=== PATIENT | male | born 1995 | race Caucasian/White ===

== ENCOUNTER → 2017-12-31 09:44 | Outpatient (CLI) | payer OTHER, SELFPAY ==
--- NOTE | 2017-12-31 | DI.RAD.S_ITS ---
PROCEDURE: FL SHOULDER INJECTION MR/CT RT INDICATIONS: PAIN IN RIGHT SHOULDER. TECHNIQUE: The indications, alternatives, benefits, risks, and complications of the procedure were explained to the patient. Written informed consent was obtained and placed in the chart. The shoulder was examined fluoroscopically and a site for needle placement chosen for entry into the glenohumeral joint from an anterior approach. The skin was prepped and draped in a sterile fashion, and 1% lidocaine infiltrated from skin down to joint capsule. A spinal needle was inserted into the glenohumeral joint, and a small amount of iodinated contrast media injected to confirm intra-articular placement of the needle tip. This was followed by approximately 10 mL dilute solution of a gadolinium containing MR contrast agent. The needle was removed and a dressing was applied. The patient was given postprocedural instructions and sent to the MR suite for MR imaging. FINDINGS: A single fluoroscopic spot image demonstrates intra-articular location of injected iodinated contrast. IMPRESSION: Successful fluoroscopically guided administration of dilute Gadolinium solution into the right shoulder joint for MR arthrogram. Dictated by: Vito Neumann M.D. on 12/31/2017 at 11:20 Approved by: Vito Neumann M.D. on 12/31/2017 at 11:21
--- NOTE | 2017-12-31 | DI.MRI.S_ITS ---
PROCEDURE: MR SHOULDER RT W CON INDICATIONS: PAIN IN RIGHT SHOULDER TECHNIQUE: After the administration of 12 mL of dilute intra-articular Gadolinium contrast, oblique coronal T1 and T2 spin echo with fat saturation, oblique sagittal T1 spin echo with and without fat saturation, oblique sagittal T2 fast spin echo with fat saturation, axial T1 spin echo with fat saturation through the shoulder. COMPARISON: None. FINDINGS: Image quality: Excellent. Rotator cuff: The supraspinatus tendon is slightly thickened with increased internal signal compatible with moderate tendinosis. There is a low-grade, partial, interstitial tear of the supraspinatus tendon at the humeral attachment (series 5, image 12). The infraspinatus tendon is slightly thickened with mildly increased internal signal compatible with mild tendinosis. The infraspinatus, and subscapularis tendons appear intact throughout. No rotator cuff muscle atrophy on sagittal images. Bones and bursae: No bone marrow contusions or fractures. Mild acromioclavicular joint osteoarthritic degeneration. The acromion demonstrates conventional anatomy, without an os acromiale. Fluid noted in the subacromial/subdeltoid bursa. Capsule and soft tissues: The labrum and glenohumeral ligaments appear intact. The long head of the biceps tendon demonstrates normal location and morphology. The rotator interval appears normal, without fibrosis. The coracohumeral ligament is of normal thickness. No intra-articular bodies. IMPRESSION: 1. Low-grade, partial, interstitial tear of the supraspinatus tendon at the humeral attachment. 2. Moderate supraspinatus tendinopathy. Mild infraspinatus tendinopathy. 3. Mild acromioclavicular joint osteoarthritis. 4. Mild subacromial/subdeltoid bursitis. Dictated by: Maritza Chapman MD, PhD on 12/31/2017 at 15:26 Approved by: Maritza Chapman MD, PhD on 12/31/2017 at 18:51
== END ==
PROVIDERS: PCP Student in an Organized Health Care Education/Training Program; Visit Provider Student in an Organized Health Care Education/Training Program
DX: M75.111 Incomplete rotator cuff tear or rupture of right shoulder, not specified as traumatic (principal); M19.011 Primary osteoarthritis, right shoulder; M75.51 Bursitis of right shoulder; M25.511 Pain in right shoulder
CPT/HCPCS: 23350; 73222; 77002